=== PATIENT | female | born 1935 | race Caucasian/White ===

== ENCOUNTER → 2018-01-22 15:56 | Outpatient (CLI) | payer MEDICARE, OTHER | END | disposition home or self-care (01) | LOC: D.CT 15:56 | DX: K56.609 Unspecified intestinal obstruction, unspecified as to partial versus complete obstruction (principal) ==

== ENCOUNTER → 2018-02-25 09:41 | Outpatient (CLI) | payer MEDICARE, OTHER ==
[~2018-02-25 09:41] MED LIST: APRISO0.375 GM PO; BUDESONIDE PO; GABAPENTIN100 MG PO; PROTONIX40 MG; ZOLOFT100 MG PO
[2018-02-25 10:07] LABS: BASOPHILS 0.6 % (0-2); EOSINOPHILS 3.5 % (0-7); HEMATOCRIT 34.7 % (36.0-48.0); IMMATURE GRANULOCYTES 0.1 % (0-5); LYMPHOCYTES 14.9 % (15-50); MCH 30.5 pg (26.0-34.0); MCHC 31.7 g/dL (31.0-37.0); MCV 96.1 fL (80.0-100.0); MEAN PLATELET VOLUME 9.9 fL (7.4-10.4); MONOCYTES 9.2 % (2-11); NEUTROPHILS 71.7 % (40-80); PLATELET COUNT 202 10x3/uL (130-400); RBC 3.61 10x6/uL (4.00-5.40); RDW 13.4 % (11.5-14.5); WBC 6.8 10x3/uL (4.8-10.8)
[2018-02-25 10:34] LABS: ALBUMIN 3.4 g/dL (3.4-5.0); ANION GAP 10.3 mmol/L (8-16); BILIRUBIN - TOTAL 0.2 mg/dL (0.2-1.3); CALCIUM 8.8 mg/dL (8.5-10.1); CARBON DIOXIDE 30.1 mmol/L (21.0-32.0); CREATININE - SERUM 0.8 mg/dL (0.6-1.3); POTASSIUM - SERUM 3.4 mmol/L (3.5-5.1); PROTEIN - SERUM 6.9 g/dL (6.4-8.2)
[2018-02-25 11:29] LABS: ERYTHROCYTE SEDIMENTATION RATE 32 mm/hr (0-30)
[2018-04-02 08:26] VITALS: BMI 21.0
== END | disposition home or self-care (01) ==
LOC: D.LAB 09:41
PROVIDERS: Internal Medicine Gastroenterology
DX: K51.90 Ulcerative colitis, unspecified, without complications (principal); R19.4 Change in bowel habit; R12 Heartburn; R13.10 Dysphagia, unspecified; R63.4 Abnormal weight loss

== ENCOUNTER → 2018-03-15 09:06 | Outpatient (CLI) | payer MEDICARE, OTHER ==
[2018-04-02 08:26] VITALS: BMI 21.0
== END | disposition home or self-care (01) ==
LOC: D.RAD 09:06
DX: R13.10 Dysphagia, unspecified (principal)

== ENCOUNTER 2018-04-02 07:38 | Day surgery (SDC) | payer MEDICARE, OTHER ==
[~2018-04-02] VITALS: Ht 167.6 cm; Wt 59.0 kg
--- NOTE | ~2018-04-02 | OP ---
PATIENT NAME: SRAVANTHI DEJESUS MEDICAL RECORD: [id number] :37 LOCATION:D.OPS ADMISSION DATE: SURGEON: ANDREZ CASTELLANO MD DATE OF OPERATION: 04/02/2018 PREOPERATIVE DIAGNOSIS: Complex polyp of the distal ascending colon, tattooed. POSTOPERATIVE DIAGNOSES: Complex polyp of the distal ascending colon, tattooed with a secondary polyp in the transverse colon, which was a carpeting polyp and measured 2.0 cm. PROCEDURES: 1. Total colonoscopy to cecum. 2. Epinephrine submucosal injection with snare polypectomy of the ascending colon polyp and then treatment of the polypoid base with the argon plasma housekeeping attendant. 3. Hot biopsy forceps polypectomy times 1. SURGEON: Andrez Castellano MD FOUR CORNER FORMER MACHINE OPERATOR: None. BLOOD LOSS: Minimal. ANESTHESIA: General. COMPLICATIONS: None. DESCRIPTION OF PROCEDURE: The patient was conveyed to the operating room electively on 04/02/2018. General anesthesia was induced by the anesthesia staff. The patient was placed in the Locke position. A digital rectal examination was performed. A colonoscope was inserted through the anus. Upon advancing the colonoscope, I noted a polyp in the mid transverse colon. I probably noticed this polyp during this endoscopy because the prep was really very good and I would call it excellent. A hot biopsy forceps polypectomy was performed here. It was easily advanced to the cecum. The prep was excellent. Upon withdrawal, I irrigated and aspirated extensively. I dragged the folds. The pullback was greater than 25-minute pullback. I used a combination of normal imaging as well as narrow band imaging. Cold endoscopic biopsies were performed of the polyp, which was on a fold. It was somewhat difficult to grasp. I advanced a sclerotherapy needle. A submucosal injection of epinephrine was performed. After this was done, I performed a piecemeal snare polypectomy of the polyp. I then destroyed the polypoid base with the argon plasma housekeeping attendant with the right colon setting in the forced mode. I grasped the snare portion of the polyp with an endoscopic retrieval net and then slowly withdrew the endoscope while examining the marrero. The patient was then extubated and conveyed to the post-anesthesia care unit where she was in stable condition. I will see her in the office in 2-3 weeks. I will plan for her next colonoscopy with the argon plasma housekeeping attendant to take place in 1 year. TRANSINT:[id number] Voice Confirmation ID: [id number] DOCUMENT ID: [id number] OPERATIVE REPORT [id number] SRAVANTHI DEJESUS ROBERT MD at 1024 CC: ANDREZ WALKER and VALERIANO BUITRAGO DO [id number] DICTATION DATE: 04/02/18 1108 HEALTH COACH: 04/02/18 1121 [facility] [place] 04/02/18 [place] [id number] [place] [id number]
[~2018-04-02 07:38] MED LIST changes: -BUDESONIDE PO
[2018-04-02 07:54] LABS: HEMATOCRIT 37.9 % (36.0-48.0); HEMOGLOBIN 12.3 g/dL (12-16); MCH 30.7 pg (26.0-34.0); MCHC 32.5 g/dL (31.0-37.0); MCV 94.5 fL (80.0-100.0); MEAN PLATELET VOLUME 10.3 fL (7.4-10.4); RBC 4.01 10x6/uL (4.00-5.40); RDW 13.9 % (11.5-14.5); WBC 7.1 10x3/uL (4.8-10.8)
[2018-04-02] MEDS ORDERED: BUDESONIDE PO (08:18)
[2018-04-02 08:26] VITALS: BP 145/68; Ht 167.6 cm; Wt 59.0 kg
== END 2018-04-02 13:00 | disposition home or self-care (01) ==
LOC: D.OPS 07:38
PROVIDERS: Anesthesiology
DX: K63.5 Polyp of colon (principal)

== ENCOUNTER → 2018-06-27 13:55 | Outpatient (CLI) | payer MEDICARE, OTHER ==
[2018-04-02 08:26] VITALS: BMI 21.0
[~2018-06-27 13:55] MED LIST changes: +BUDESONIDE PO
== END | disposition home or self-care (01) ==
LOC: D.RAD 13:55
DX: S30.0XXA Contusion of lower back and pelvis, initial encounter (principal); X58.XXXA Exposure to other specified factors, initial encounter

== ENCOUNTER → 2018-09-17 10:37 | Outpatient (CLI) | payer MEDICARE, OTHER ==
[2018-04-02 08:26] VITALS: BMI 21.0
== END | disposition home or self-care (01) ==
LOC: D.LAB 10:37
DX: K51.90 Ulcerative colitis, unspecified, without complications (principal); Z51.81 Encounter for therapeutic drug level monitoring; Z79.899 Other long term (current) drug therapy

== ENCOUNTER 2019-03-11 06:31 | Day surgery (SDC) | payer MEDICARE, OTHER ==
[~2019-03-11] VITALS: Ht 167.6 cm; Wt 57.3 kg
[2019-03-11 07:02] LABS: HEMATOCRIT 36.8 % (36.0-48.0); HEMOGLOBIN 12.1 g/dL (12-16); MCH 30.8 pg (26.0-34.0); MCHC 32.9 g/dL (31.0-37.0); MCV 93.6 fL (80.0-100.0); MEAN PLATELET VOLUME 9.7 fL (7.4-10.4); RBC 3.93 10x6/uL (4.00-5.40); RDW 13.8 % (11.5-14.5); WBC 5.3 10x3/uL (4.8-10.8)
[2019-03-11 07:40] VITALS: BP 137/76; Ht 167.6 cm; Wt 57.3 kg
--- NOTE | 2019-03-11 15:42 | NUR ---
1155 UP TOBATHROOM AMBULATORY WITHOUT DIFFICULTY. VOIDED & PASSED FLATUS. BACK TO BED IV DC'ED WITH CATH INTACT & 150ML LTC. DRESSING. Dante SAMPSON R.N. 1205 DRESSED. GIVEN DISCAHRGE INSTRUCTIONS BY Jacqui DONALDSON R.N. TO PRIVATE CAR PER WHEELCHAIR. HOME WITH DAUGHTER, CLEMENTINA. Dante SAMPSON R.N.
--- NOTE | 2019-03-11 16:46 | HP ---
PATIENT: SRAVANTHI DEJESUS MEDICAL RECORD: [id number] ACCOUNT: [id number] LOCATION:ATIYA : 37 ADMISSION DATE: 03/11/19 PCP: PATRICK WALKER DO HISTORY AND PHYSICAL EXAMINATION HISTORY: The patient was found to have ascending colon polyp as well as a transverse colon polyp. The patient underwent epinephrine submucosal injection with snare polypectomy of the ascending colon polyp and then treatment with the argon plasma director of corporate strategy. The patient is here for colonoscopy with polypectomy. HOME MEDICATIONS: Please see the nursing list. ALLERGIES: TO CORTICOSTEROIDS WELL SULFA. PAST MEDICAL AND SURGICAL HISTORY: Gastroesophageal reflux, history of colon polyps. No CVA or seizures. No diabetes or thyroid problems. SOCIAL HISTORY: Nonsmoker. PHYSICAL EXAMINATION: GENERAL: The patient does not appear acutely ill. She does not appear chronically ill. VITAL SIGNS: Reviewed. EARS: External ears appear normal. EYES: Extraocular movements are intact. NECK: Trachea is at midline. CHEST: No intercostal retractions. PULMONARY: Nonlabored, no stridor. ABDOMEN: There is no peritonitis. IMPRESSION: Transverse and ascending colon polyps. PLAN: Colonoscopy and polypectomies of any persistent or recurrent polypoid tissue. TRANSINT:[id number] Voice Confirmation ID: [id number] DOCUMENT ID: [id number] PATRICK CASTELLANO MD at 1646 CC: PATRICK WALKER and VALERIANO BUITRAGO DO [id number] DICTATION DATE: 03/11/19 1001 FEATHER CUTTING MACHINE FEEDER: 03/11/19 1044 [facility] 03/11/19 [place] [id number] [place] [id number]
--- NOTE | 2019-03-14 16:07 | OP ---
PATIENT NAME: SRAVANTHI DEJESUS MEDICAL RECORD: [id number] :37 LOCATION:D.OPS ADMISSION DATE: SURGEON: ANDREZ CASTELLANO MD DATE OF OPERATION: 03/11/2019 PRINCIPAL DIAGNOSES: 1. History of ascending colon polyp. 2. History of transverse colon polyp. POSTOPERATIVE DIAGNOSES: 1. History of ascending colon polyp. 2. History of transverse colon polyp. 3. Possible regrowth of the ascending colon polyp. PROCEDURES: 1. Total colonoscopy to cecum. 2. Hot biopsy forceps polypectomy 1. 3. Placement of 2 endoscopic clips for post-procedural hemostasis. SURGEON: Andrez Castellano MD MONTESS[place]I PARAPROFESSIONAL: None. BLOOD LOSS: Minimal. ANESTHESIA: IV sedation. COMPLICATIONS: None. The risks, possible complications, and alternatives to the procedure were explained to the patient. She elects to proceed. ENDOSCOPIC COURSE: The patient was conveyed to the endoscopy suite electively on 03/11/2019. IV sedation was induced by the anesthesia staff. The patient was placed in the Locke position. A digital rectal examination was performed. A colonoscope was inserted through the anus. It was easily advanced to the cecum. The prep was adequate. I slowly withdrew the endoscope. I irrigated and aspirated extensively. Pullback was greater than an 18-minute pullback. There was a scar in the ascending colon. Utilizing narrow band imaging, there was a questionable area of polypoid regrowth within the scar. This was treated with the hot biopsy forceps polypectomy technique. There was some bleeding after the biopsy. For post-procedural hemostasis, I placed 2 endoscopic clips. There was no further bleeding. I slowly withdrew the endoscope. I saw no other polypoid lesions. A retroflexed view was obtained in the rectum. I then unretroflexed the scope and removed it under direct vision. I will see the patient in my office in 2-3 weeks. I will plan for her next colonoscopy to take place in 2 years. TRANSINT:[id number] Voice Confirmation ID: [id number] DOCUMENT ID: [id number] OPERATIVE REPORT [id number] OLEGSRAVANTHI ANDREZ SHOEMAKER MD at 1607 CC: ANDREZ WALKER [id number] DICTATION DATE: 03/11/19 1045 TELESALES PROFESSIONAL: 03/11/19 1122 [facility] 03/11/19 [facility] [address] [place] [address]
== END 2019-03-11 12:05 | disposition home or self-care (01) ==
LOC: D.OPS 06:31
PROVIDERS: ATTEND Surgery
DX: K63.5 Polyp of colon (principal); Z86.010 Personal history of colon polyps; K21.9 Gastro-esophageal reflux disease without esophagitis; Z88.2 Allergy status to sulfonamides; Z88.8 Allergy status to other drugs, medicaments and biological substances; Z01.812 Encounter for preprocedural laboratory examination

== ENCOUNTER → 2021-01-20 10:14 | Outpatient (CLI) | payer MEDICARE, OTHER ==
[2019-03-11 07:40] VITALS: BMI 20.3
== END | disposition home or self-care (01) ==
LOC: D.RAD 01-11 10:00
PROVIDERS: ATTEND Internal Medicine Gastroenterology
DX: R13.10 Dysphagia, unspecified (principal)

== ENCOUNTER 2021-02-08 06:25 | Day surgery (SDC) | payer MEDICARE, OTHER ==
[~2021-02-08] VITALS: Ht 167.6 cm; Wt 59.5 kg
[2021-02-08 07:07] LABS: ANION GAP 14.1 mmol/L (8-16); CALCIUM 8.6 mg/dL (8.5-10.1); CARBON DIOXIDE 28.3 mmol/L (21.0-32.0); CREATININE - SERUM 0.9 mg/dL (0.6-1.3); POTASSIUM - SERUM 4.4 mmol/L (3.5-5.1)
[2021-02-08 07:10] LABS: EOSINOPHILS 3.7 % (0-7); HEMATOCRIT 34.5 % (36.0-48.0); HEMOGLOBIN 11.3 g/dL (12-16); LYMPHOCYTES 23.9 % (15-50); MCH 31.4 pg (26.0-34.0); MCHC 32.7 g/dL (31.0-37.0); MCV 95.9 fL (80.0-100.0); MEAN PLATELET VOLUME 8.2 fL (7.4-10.4); MONOCYTES 6.5 % (2-11); NEUTROPHILS 64.9 % (40-80); PLATELET COUNT 256 10x3/uL (130-400); RDW 14.4 % (11.5-14.5); WBC 5.5 10x3/uL (4.8-10.8)
[2021-02-08] MEDS ORDERED: VITAMIN E (08:17)
[2021-02-08] MEDS ORDERED: OCCUVITE PO (08:17)
[2021-02-08 08:18] VITALS: BP 140/77; Ht 167.6 cm; Wt 59.5 kg
--- NOTE | 2021-02-08 14:41 | NUR ---
1145 DRESSED, AWAKE & ALERT. PROVIDED WITH D/C INFORMATION INCLUDING: MED REC., SHEET LIST NSAIDS TO HOLD, RTC APPT., & [facility] POST ENDOSCOPY D/C INFORMATION. TO PRIVATE CAR PER WHEELCHAIR BY STAFF. HOME WITH DAUGHTER, CLEMENTINA [place]. Dante SAMPSON R.N.
--- NOTE | 2021-02-10 09:22 | OP ---
PATIENT NAME: SRAVANTHI DEJESUS MEDICAL RECORD: [id number] :37 LOCATION:D.OPS ADMISSION DATE: SURGEON: ANDREZ CASTELLANO MD DATE OF OPERATION: 02/08/2021 PREOPERATIVE DIAGNOSES: 1. Dysphagia. 2. Gastroesophageal reflux. POSTOPERATIVE DIAGNOSES: 1. Dysphagia. 2. Gastroesophageal reflux. 3. Several diminutive gastric polyps. PROCEDURES: 1. Esophagogastroduodenoscopy with mid esophageal and antral biopsies. 2. Esophageal dilation to 54-Tajik with tviauib-wsp-amyecaoe balloon SURGEON: Andrez Castellano MD VP GLOBAL: None. BLOOD LOSS: Minimal. ANESTHESIA: IV sedation. COMPLICATIONS: None. The risks, possible complications, and alternatives of the procedure were explained to the patient. She elects to proceed. ENDOSCOPIC COURSE: The patient was conveyed to the endoscopy suite electively on 02/08/2021. IV sedation was induced by the anesthesia staff. A bite block was inserted. A gastroscope was inserted into the mouth. It was advanced easily into the hypopharynx. The esophagus was easily intubated as well as stomach and duodenum. Upon withdrawal, retroflexed and angulus views were obtained. Antral biopsies were obtained. I withdrew into the cardia of the stomach. I advanced nmeqigu-plz-bhlovfbn balloon. I then pulled back and sequentially dilated the entire length of the esophagus to 54-Tajik. The gastroscope and balloon dilator were then removed. We advanced the gastroscope into the stomach. I then withdrew it into the mid esophagus and obtained some mid esophageal biopsies to rule out eosinophilic esophagitis. The endoscope was then withdrawn under direct vision. I will see the patient in my office in 2-3 weeks. TRANSINT:[id number] Voice Confirmation ID: [id number] DOCUMENT ID: [id number] OPERATIVE REPORT [id number] SRAVANTHI DEJESUS ANDREZ SHOEMAKER MD at 0922 CC: [id number] DICTATION DATE: 02/08/21 1058 LABORATORY SUPERVISOR: 02/08/21 1123 [facility] 02/08/21 [facility] [address] [place] [address]
== END 2021-02-08 11:45 | disposition home or self-care (01) ==
LOC: D.OPS 06:25
PROVIDERS: Anesthesiology; ATTEND Nurse Practitioner
DX: R13.10 Dysphagia, unspecified (principal); K21.9 Gastro-esophageal reflux disease without esophagitis; K31.7 Polyp of stomach and duodenum; K44.9 Diaphragmatic hernia without obstruction or gangrene; F32.9 Major depressive disorder, single episode, unspecified